=== PATIENT | female | born 1970 | race Caucasian/White ===

== ENCOUNTER → 2018-10-13 | Outpatient (CLI) | payer OTHER ==
[~2018-10-13] MED LIST: METF500T17 PO
[2018-10-13 14:28] LABS: BASOPHILS # (AUTO) 0.03 x10^3/uL (0-0.1); BASOPHILS % (AUTO) 0 % (0-1); EOSINOPHILS # (AUTO) 0.19 x10^3/uL (0-0.4); EOSINOPHILS % (AUTO) 2 % (1-7); LYMPHOCYTES # (AUTO) 2.45 x10^3/uL (1-3.4); LYMPHOCYTES % (AUTO) 25 % (22-44); MD NO; MEAN CORPUSCULAR HEMOGLOBIN 30.4 pg (27.0-34.8); MEAN CORPUSCULAR HGB CONC 33.9 g/dL (32.4-35.8); MEAN CORPUSCULAR VOLUME 89.8 fL (80-100); MEAN PLATELET VOLUME 8.9 fL (7.4-10.4); MONOCYTES # (AUTO) 0.62 x10^3/uL (0.2-0.8); MONOCYTES % (AUTO) 6 % (2-9); NEUTROPHILS # (AUTO) 6.49 x10^3/uL (1.8-6.8); NEUTROPHILS % (AUTO) 66 % (42-75); PLATELET COUNT 284 x10^3/uL (130-400); RED BLOOD COUNT 5.15 x10^6/uL (3.82-5.3); RED CELL DISTRIBUTION WIDTH 13.8 % (9.6-15.2)
[2018-10-13 14:37] LABS: ALBUMIN 3.8 g/dL (3.4-5.0); ANION GAP 2 mmol/L (5-15); CALCIUM 9.5 mg/dL (8.5-10.1); CHLORIDE 106 mmol/L (98-107)
[2018-10-13 14:39] LABS: ALANINE AMINOTRANSFERASE 39 U/L (12-78); ALKALINE PHOSPHATASE 66 U/L (45-117); CREATININE 1.01 mg/dL (0.55-1.02); TOTAL PROTEIN 8.2 g/dL (6.4-8.2)
[2018-10-13 14:49] LABS: MICROSCOPIC AUTO
[2018-10-13 14:57] LABS: CULTURE INDICATED? YES
== END | disposition home or self-care (01) ==
LOC: STAR 13:38
PROVIDERS: ATTEND Obstetrics & Gynecology
DX: Z01.818 Encounter for other preprocedural examination (principal); N92.0 Excessive and frequent menstruation with regular cycle
CPT/HCPCS: 36415; 80053; 81001; 81025; 85025; 87086; 93005

== ENCOUNTER 2018-10-31 05:31 | Day surgery (SDC) | payer OTHER ==
[~2018-10-31] VITALS: Ht 170.2 cm; Wt 110.9 kg
[2018-10-31] MEDS ORDERED: LACTATED RINGERS 1,000 ML IV SCH (06:02)
[2018-10-31 06:07] VITALS: BP 164/103
[2018-10-31] MEDS ORDERED: ACETAMINOPHEN 500 MG TABLET PO ONE (06:30)
[2018-10-31] MEDS ORDERED: OxyconTIN ER 10 MG TAB.ER PO ONE (06:30)
[2018-10-31 06:37] LABS: HCG UR SG 1.023 (1.003-1.030)
[2018-10-31] MEDS ORDERED: EPINEPHRINE 1 MG/ML, 1ML ONE (06:39)
[2018-10-31] MEDS ORDERED: BUPIVACAINE/PF 0.25% ONE (06:39)
[2018-10-31] MEDS ORDERED: SILVER NITRATE STICK TP ONE (06:39)
[2018-10-31] MEDS ORDERED: LISI5TAB7 PO (06:43)
[2018-10-31] MEDS ORDERED: MIDAZOLAM 1 MG/ML, 2ML ONE (07:19)
[2018-10-31] MEDS ORDERED: FENTANYL PF 100 MCG/2ML ONE ×2 (07:19→08:47)
[2018-10-31] MEDS ORDERED: hydrALAzine 20 MG/ML, 1ML IV PRN (08:00)
[2018-10-31] MEDS ORDERED: OXYcodone 5 MG/5 ML ORAL.SOL UDC PO PRN (08:00)
[2018-10-31] MEDS ORDERED: PROMETHAZINE 25 MG/ML, 1ML IV PRN (08:00)
[2018-10-31] MEDS ORDERED: LABETALOL 5MG/ML, 20ML IV PRN (08:00)
[2018-10-31] MEDS ORDERED: HALOPERIDOL 5 MG/ML IV PRN (08:00)
[2018-10-31] MEDS ORDERED: HYDROmorphone 2 MG/ML, 1ML IVPush PRN (08:00)
[2018-10-31] MEDS ORDERED: ALBUTEROL SULFATE 2.5 MG/3 ML NPPB PRN (08:00)
[2018-10-31] MEDS ORDERED: MEPERIDINE/PF 25MG/ML,1ML ONE (08:20)
[2018-10-31] MEDS ORDERED: hydrALAzine 20 MG/ML, 1ML ONE (08:51)
[2018-10-31] MEDS: FENTANYL PF 100 MCG/2ML IV PRN ×2 (09:00→09:05)
[2018-10-31] MEDS ORDERED: MEPERIDINE/PF 25MG/0.5ML IVPush PRN (09:00)
[2018-10-31] MEDS ORDERED: OXYcodone/APAP 5/325MG TABLET ONE (10:50)
[2018-10-31] MEDS ORDERED: DEXAMETHASONE 4 MG/ML, 1ML ONE (15:38)
[2018-10-31] MEDS ORDERED: ONDANSETRON 2MG/ML, 2ML ONE (15:38)
[2018-10-31] MEDS ORDERED: CEFAZOLIN 1,000 MG ONE (15:38)
[2018-10-31] MEDS ORDERED: SUCCINYLCHOLINE 20 MG/ML, 10ML ONE (15:38)
[2018-10-31] MEDS ORDERED: PROPOFOL 10 MG/ML, 20ML ONE (15:38)
[2018-10-31] MEDS ORDERED: METOPROLOL 1 MG/ML, 5ML ONE (15:38)
== END 2018-10-31 12:00 | disposition home or self-care (01) ==
LOC: OUT 05:31
PROVIDERS: ATTEND Obstetrics & Gynecology
DX: N92.0 Excessive and frequent menstruation with regular cycle (principal); N94.6 Dysmenorrhea, unspecified; E28.2 Polycystic ovarian syndrome; E11.9 Type 2 diabetes mellitus without complications; G43.909 Migraine, unspecified, not intractable, without status migrainosus; E66.01 Morbid (severe) obesity due to excess calories; Z68.38 Body mass index [BMI] 38.0-38.9, adult; Z98.890 Other specified postprocedural states; Z98.51 Tubal ligation status; Z90.721 Acquired absence of ovaries, unilateral; Z88.8 Allergy status to other drugs, medicaments and biological substances; Z79.84 Long term (current) use of oral hypoglycemic drugs
CPT/HCPCS: 58563; 73501; 81025; 82962; J0171; J0330; J0360; J0690; J1100; J2175; J2250; J2405; J2704; J3010; J3490; J7120